=== PATIENT | male | born 1990 | race Caucasian/White ===

== ENCOUNTER 2023-01-13 16:38 | Emergency (ER) | payer MEDICAID ==
[~2023-01-13] VITALS: Ht 177.8 cm; Wt 113.0 kg
[2023-01-13 16:53] VITALS: TEMP 98.1; O2SAT 99
[2023-01-13 20:15] VITALS: BP 134/87; PULSE 109; RESP 20
[2023-01-13] MEDS ORDERED: IBUPROFEN 600MG TABLET PO ONE (20:15)
[2023-01-13] MEDS ORDERED: LIDOCAINE HCL/PF 1% 10 MG/ML 5ML VIAL INFIL ONE (20:15)
[2023-01-13] MEDS ORDERED: BACITRACIN ZINC OINT UDPKT TOP ONE (20:15)
[2023-01-13] MEDS ORDERED: IBUP-2029 MT (21:46)
== END 2023-01-13 22:38 | disposition home or self-care (01) ==
LOC: ER 16:47
DX: S61.012A Laceration without foreign body of left thumb without damage to nail, initial encounter (principal); W26.8XXA Contact with other sharp object(s), not elsewhere classified, initial encounter; Y93.89 Activity, other specified; Y92.89 Other specified places as the place of occurrence of the external cause; Y99.8 Other external cause status
CPT/HCPCS: 73140; 99283; J3490; Z7610